=== PATIENT | female | born 1975 | race Caucasian/White ===

== ENCOUNTER 2016-06-28 17:05 | Emergency (ER) | payer OTHER ==
[~2016-06-28] VITALS: Ht 162.6 cm; Wt 59.0 kg
--- NOTE | 2016-06-28 18:45 | ED CARDIAC/CP/PALPITATIONS ---
History of Present Illness General Chief Complaint: Chest Pain Stated Complaint: CP WITH DIZZINESS Source: patient, old records Exam Limitations: no limitations Vital Signs & Intake/Output Vital Signs & Intake/Output Vital Signs Date Time Temp Pulse Resp B/P Pulse O2 O2 Flow FiO2 Ox Delivery Rate 06/28 2141 66 20 111/64 98 Room Air 06/28 1941 Room Air Room Air 06/28 1754 97.9 83 20 109/79 98 Room Air Room Air Allergies Coded Allergies: No Known Allergies (06/28/16) Reconcile Medications Alprazolam 1 MG TABLET 1 TAB PO TIDPRN ANXIETY (Reported) Diazepam (Valium) 2 MG TABLET 1 TAB PO BID PRN DIZZINESS Triage Note: PT TO ED WITH C/O "FEELING FOGGY, CAN'T TALK STRAIGHT, CHEST PAIN, NECK PAIN FOR A MONTH OR TWO". Triage Nurses Notes Reviewed? yes Onset: Gradual Duration: since january 2016 everyday constant pressure aching Timing: recent history Quality/Severity: moderate, aching, pressure Location: substernal Radiation: no radiation Activities at Onset: none Prior Chest Pain/Card Workup: no prior chest pain Nitro Today/Relief: no nitro taken today Aspirin Today: 81 mg x 1 Associated Symptoms: dyspnea headache, "feeling foggy" : No Patient currently breastfeeds: No HPI: 40-year-old female with history of anxiety on Xanax presents to emergency room complaining of severe moderate aching nonradiating substernal chest pain associated with shortness of breath. She states she's had these symptoms every day of her life since January 2016. She states the chest pain is worse with talking and is felt in a "fog" complaining of generalized headaches since. She is not taken anything for the symptoms are soccer since she does not have a primary care physician. She denies nausea vomiting abdominal pain. The patient does report intermittent shortness of breath however denies pain with inspiration no cough no hemoptysis no leg swelling recent immobility or recent travel. She is also complaining of room spinning dizziness worse with change in position and movement for which she has been on meclizine in the past without improvement. (ERIC VÁSQUEZ,DEEPTHI) Past History Travel History Traveled to [place] past 21 day No Medical History Any Pertinent Medical History? see below for history Neurological: NONE EENT: NONE Cardiovascular: NONE Respiratory: bronchitis Gastrointestinal: ULCER IN STOMACH, H-PYLORI Hepatic: NONE Renal: NONE Musculoskeletal: NONE Psychiatric: anxiety Endocrine: NONE Blood Disorders: NONE Cancer(s): cervical cancer MARITIME PILOT/Reproductive: NONE Surgical History Surgical History: none Psychosocial History What is your primary language Bulgarian Tobacco Use: Current Daily Use Daily Tobacco Use Amount/Type: => 5 Cigarettes daily ETOH Use: occasional use Illicit Drug Use: denies illicit drug use Family History Hx Contributory? No (DEEPTHI BERNAL) Review of Systems Review of Systems Constitutional: Reports: see HPI. All Other Systems: Reviewed and Negative Comments Review of systems: See HPI, All other systems negative. Constitutional, no chills no fever, no malaise no weight loss HEENT: No visual changes no sore throat no congestion, Cardiovascular: chest pain , no palpitation Skin, no jaundice no rashes, no change in skin Respiratory: dyspnea no cough no sputum no hemoptysis GI: No nausea no vomiting, no diarrhea, : No dysuria Muscle skeletal: No joint pain, no joint swelling, no back pain, no neck pain, Neurologic: No numbness no confusion, no headache Psych: No stress no anxiety Heme/endocrine: No bruising no bleeding Immunology: No lymphadenopathy (DEEPTHI BERNAL) Physical Exam Physical Exam General Appearance: well developed/nourished, alert Cardiovascular: regular rate/rhythm Comments: Well-developed well-nourished person in no acute distress HEENT: Normal EENT exam; PERRL, EOMI, HEAD is atraumatic. moist mucous membranes. No nystagmus Neck: Supple, no lymphadenopathy, normal range of motion Back: Nontender, no CVA tenderness. Full range of motion Cardiovascular: Regular rate and rhythms no murmurs rubs or gallops, normal JVP Respiratory: Chest nontender.There were no bony deformities, no asymmetry. No respiratory distress. Patient speaking in full complete sentences. Breath sounds clear to auscultation bilaterally: NO W/R/R Abdomen: Soft, nontender nondistended, no appreciable organomegaly. Normal bowel sounds. No rebound/guarding, Extremity: No edema, full range of motion of extremities, normal and equal pulses bilaterally, 5 out of 5 strength noted to bilateral upper and lower extremities Neuro: Alert oriented x3, motor sensory normal, cranial nerves II through XII grossly intact. There were no obvious focal neurologic abnormalities. Skin: No appreciable rash on exposed skin, skin is warm and dry. Psych: Mood and affect is normal, memory and judgment is normal. Core Measures ACS in differential dx? Yes Severe Sepsis Present: No Septic Shock Present: No (ERIC VÁSQUEZ,DEEPTHI) Progress Differential Diagnosis: AMI, atrial fibrillation, CHF/pulm edema, costochondritis, hypovolemia, musculoskeletal pain, myocarditis, pancreatitis, pericarditis, pneumonia, pneumothorax, pulmonary embolism Plan of Care: Orders Procedure Date/time Status Add-on Test (ER Only) 06/28 2057 Active LYME TITRE 06/28 1934 Active TROPONIN LEVEL 06/28 1904 Complete HUMAN BETA HCG SCREEN 06/28 1904 Complete COMPREHENSIVE METABOLIC PANEL 06/28 1904 Complete CBC WITHOUT DIFFERENTIAL 06/28 1904 Complete EKG 06/28 1705 Active Laboratory Tests 06/28/161934: Anion Gap 7, Estimated GFR > 60, BUN/Creatinine Ratio 27.1 H, Glucose 89, Calcium 9.4, Total Bilirubin 0.7, AST 19, ALT 36, Alkaline Phosphatase 52, Troponin I < 0.01, Total Protein 6.9, Albumin 4.3, Globulin 2.6, Albumin/ Globulin Ratio 1.7, Total Beta HCG NEGATIVE, CBC w Diff NO MAN DIFF REQ, RBC 4.29, MCV 94.4, MCH 31.5 H, RDW 12.6, MPV 7.7, Gran % 64.9, Lymphocytes % 26.3, Monocytes % 6.4, Eosinophils % 1.8, Basophils % 0.6, Absolute Granulocytes 4.8, Absolute Lymphocytes 2.0, Absolute Monocytes 0.5, Absolute Eosinophils 0.1, Absolute Basophils 0, PUBS MCHC 33.4, Lyme Disease Antibody Pending labs ordered, pt medicated with valium 5mg po which she reports relief of dizziness in past 06/28/2016 8:50:28 PM patient reports dizziness has improved- pt using her cellphone in no apparent distress she has been normal sinus on the monitor I discussed with her at length her chest x-ray CAT scan and lab results I discussed with her need and importance of close follow-up with primary care physician and cardiology both of which were provided to her discharge paperwork prescription for Valium was provided advised to return anytime sooner if her symptoms worsen at all of her questions she feels comfortable this plan I stressed the importance of not taking this medication with her Xanax. pt amb with steady gait here in dept, feels comfortable with plan (DEEPTHI BERNAL) Diagnostic Imaging: Viewed by Me: Radiology Read, CT Scan. Discussed w/RAD: Radiology Read, CT Scan. Radiology Impression: PATIENT: GWEN MELLO PRESENT AGE: 40 PATIENT ACCOUNT NO: [id number] : 75 LOCATION: ER ORDERING PHYSICIAN: DEEPTHI VÁSQUEZ SERVICE DATE: 06/28/16 EXAM TYPE: CAT - CT HEAD WO IV CONTRAST EXAMINATION: CT HEAD WITHOUT CONTRAST CLINICAL INFORMATION: Headache, difficulty finding words. Assess for intracranial hemorrhage. COMPARISON: None. TECHNIQUE: Contiguous axial imaging was performed from the skull base to vertex without intravenous administration of contrast. DLP: 600.71 mGy-cm. FINDINGS: There is no evidence of acute intracranial hemorrhage or territorial infarction. No abnormal mass effect or midline shift is seen. Gandhi to white matter differentiation is well preserved. No extra-axial fluid collections are identified. The ventricles are normal in size. There is no abnormal attenuation within the brain parenchyma. The osseous structures and soft tissues are normal. The mastoid air cells and visualized portions of the paranasal sinuses are well aerated. IMPRESSION: 1. There are no acute intracranial findings. DICTATED BY: ALYSSA VAZ MD DATE/TIME DICTATED:06/28/162027 WASHER ENGINEER:JULIEN DATE/TIME TRANSCRIBED:06/28/162027 CONFIDENTIAL, DO NOT COPY WITHOUT APPROPRIATE AUTHORIZATION. <Electronically signed in Other Vendor System> SIGNED BY: ALYSSA VAZ MD 06/28/162034, PATIENT: GWEN MELLO PRESENT AGE: 40 PATIENT ACCOUNT NO: [id number] : 75 LOCATION: ER ORDERING PHYSICIAN: DEEPTHI VÁSQUEZ SERVICE DATE: 06/28/16 EXAM TYPE: RAD - XRY-CHEST XRAY, PA AND LATERAL EXAMINATION: XR CHEST CLINICAL INFORMATION: Cardiomegaly. Chest pain. COMPARISON: Chest x-ray 09/19/2007 TECHNIQUE: 2 views of the chest were obtained. FINDINGS: No significant abnormality is noted involving the heart, lungs, mediastinum, bony thorax or soft tissues. IMPRESSION: Unremarkable examination. DICTATED BY: LEIGHANN BENITEZ MD DATE/TIME DICTATED:06/28/162042 WASHER ENGINEER:JULIEN DATE/TIME TRANSCRIBED:06/28/162042 CONFIDENTIAL, DO NOT COPY WITHOUT APPROPRIATE AUTHORIZATION. <Electronically signed in Other Vendor System> SIGNED BY: LEIGHANN BENITEZ MD 06/28/162046 Initial ED EKG: normal intervals, normal p-waves, normal QRS complex, normal sinus rhythm (80) Rhythm Strip: normal sinus rhythm (DEEPTHI BERNAL) Departure Departure Time of Disposition: 2050 Disposition: HOME OR SELF CARE Condition: Stable Clinical Impression Primary Impression: Chest pain Secondary Impressions: Dizziness Referrals: PATIENT HAS NO PRIMARY CARE DR (PCP/Family) Additional Instructions: Follow-up with DR Anna Perez, DO as well as Dr. ORR this week. Valium as directed do not take this with your Xanax Departure Forms: Customer Survey General Discharge Information Prescriptions: Current Visit Scripts Diazepam (Valium) 1 TAB PO BID PRN DIZZINESS #8 TAB (DEEPTHI BERNAL) PA/CENSUS ENUMERATOR Co-Sign Statement Statement: ED Attending supervision documentation- [] I saw and evaluated the patient. I have also reviewed all the pertinent lab results and diagnostic results. I agree with the findings and the plan of care as documented in the PA's/CENSUS ENUMERATOR's documentation. [X] I have reviewed the ED Record and agree with the PA's/CENSUS ENUMERATOR's documentation. [] Additions or exceptions (if any) to the PAs/CENSUS ENUMERATOR's note and plan are summarized below: [] (DELIA ORTIZ,JENELLE) Critical Care Note Critical Care Note Critical Care Time: non-applicable (DEEPTHI BERNAL)
[2016-06-28] MEDS ORDERED: ALPRAZOLAM1 M2 PO (19:41)
[2016-06-28 19:43] LABS: ABSOLUTE BASOPHIL COUNT 0 /CUMM (0.0-0.2); ABSOLUTE EOSINOPHIL COUNT 0.1 /CUMM (0.0-0.7); ABSOLUTE GRANULOCYTE CT 4.8 /CUMM (1.4-6.5); ABSOLUTE MONOCYTE COUNT 0.5 /CUMM (0.10-0.60); BASOPHIL % 0.6 % (0.0-2.0); EOSINOPHIL % 1.8 % (0-5); GRANULOCYTE % 64.9 % (42.2-75.2); HEMATOCRIT 40.5 % (37-47); MEAN CORPUSCULAR HGB 31.5 PG (27.0-31.0); MEAN CORPUSCULAR HGB CONC 33.4 G/DL (33.0-37.0); MEAN CORPUSCULAR VOLUME 94.4 FL (81.0-99.0); MEAN PLATELET VOLUME 7.7 FL (7.4-10.4); PLATELET COUNT 269 /CUMM (130-400); RBC DISTRIBUTION WIDTH 12.6 % (11.5-14.5); RED BLOOD CELL CT 4.29 /CUMM (4.20-5.40); WHITE BLOOD CELL COUNT 7.4 /CUMM (4.8-10.8)
--- NOTE | 2016-06-28 20:35 | CT SCAN REPORT ---
EXAMINATION: CT HEAD WITHOUT CONTRAST CLINICAL INFORMATION: Headache, difficulty finding words. Assess for intracranial hemorrhage. COMPARISON: None. TECHNIQUE: Contiguous axial imaging was performed from the skull base to vertex without intravenous administration of contrast. DLP: 600.71 mGy-cm. FINDINGS: There is no evidence of acute intracranial hemorrhage or territorial infarction. No abnormal mass effect or midline shift is seen. Gandhi to white matter differentiation is well preserved. No extra-axial fluid collections are identified. The ventricles are normal in size. There is no abnormal attenuation within the brain parenchyma. The osseous structures and soft tissues are normal. The mastoid air cells and visualized portions of the paranasal sinuses are well aerated. IMPRESSION: 1. There are no acute intracranial findings.
--- NOTE | 2016-06-28 20:47 | RADIOLOGY REPORT ---
EXAMINATION: XR CHEST CLINICAL INFORMATION: Cardiomegaly. Chest pain. COMPARISON: Chest x-ray 09/19/2007 TECHNIQUE: 2 views of the chest were obtained. FINDINGS: No significant abnormality is noted involving the heart, lungs, mediastinum, bony thorax or soft tissues. IMPRESSION: Unremarkable examination.
[2016-06-28] MEDS ORDERED: VALIUM2 M1 PO (20:52)
[2016-06-28 21:41] VITALS: BP 111/64
== END 2016-06-28 21:42 ==
LOC: ERH 17:05
PROVIDERS: Physician Assistant Medical
DX: R07.9 Chest pain, unspecified (principal); R42 Dizziness and giddiness
CPT/HCPCS: 86618; 93005; 93010; J3360

== ENCOUNTER 2016-08-04 17:20 | Emergency (ER) | payer OTHER ==
[~2016-08-04] VITALS: Ht 162.6 cm; Wt 59.0 kg
[~2016-08-04 17:20] MED LIST: ALPRAZOLAM1 M2 PO; VALIUM2 M1 PO
[2016-08-04 17:25] VITALS: BP 109/73
--- NOTE | 2016-08-04 17:51 | ED GENERAL ADULT ---
History of Present Illness General Chief Complaint: General Adult Stated Complaint: R SIDED RIB PAIN Source: patient, old records Exam Limitations: no limitations Vital Signs & Intake/Output Vital Signs & Intake/Output Vital Signs Date Time Temp Pulse Resp B/P Pulse O2 O2 Flow FiO2 Ox Delivery Rate 08/04 1827 99 08/04 1725 98.4 91 20 109/73 94 Room Air Allergies Coded Allergies: No Known Allergies (06/28/16) Reconcile Medications Alprazolam 1 MG TABLET 1 TAB PO TIDPRN ANXIETY (Reported) Cholecalciferol (Vitamin D3) (Vitamin D) (Unknown Strength) TABLET (Unknown Dose) PO DAILY SUPPLEMENT (Reported) Dextroamphetamine/Amphetamine (Dextroamp-Amphetamin 30 MG Tab) 30 MG TABLET 1 TAB PO PRN ADD (Reported) Meloxicam (Mobic) 15 MG TABLET 1 TAB PO DAILY PRN PAIN/INFLAMMATION Vitamin A Palmitate (Vitamin A) (Unknown Strength) CAPSULE (Unknown Dose) PO DAILY SUPPLEMENT (Reported) Vitamin B Complex (B Complete) 1 EACH TABLET 1 TAB PO DAILY SUPPLEMENT ( Reported) Triage Note: PT TO ED C/O RIGHT SIDED RIB PAIN SINCE SUNDAY. STATES WENT TO WALK IN YESTERDAY, HAD NORMAL CXR. TOLD TO COME TO ER FOR FURTHER EVAL TO R/O PE OR "GALLBLADDER". PT CAME TO ED YESTERDAY BUT DID NOT WANT TO WAIT TO BE SEEN. RIB PAIN IS WORSE WITH INSPIRATION. DENIES ANY INJURY. Triage Nurses Notes Reviewed? yes : No Patient currently breastfeeds: No HPI: Patient is a 40-year-old female presents complaining of right-sided chest pain since Sunday. Pain is a sharp pain worsens with deep breath and movement. Patient was seen at an urgent care clinic yesterday, had x-rays of her right ribs and a PA chest x-ray that was read as unremarkable. Patient reports the pain awoke her from sleep Sunday morning. Patient reports pain is currently severe. Patient denies lower extremity pain, lower extremity swelling, fevers, chills, abdominal pain, vomiting. (JEFRY VÁSQUEZ,RHEA) Past History Travel History Traveled to [place] past 21 day No Medical History Any Pertinent Medical History? see below for history Neurological: NONE EENT: NONE Cardiovascular: NONE Respiratory: bronchitis Gastrointestinal: ULCER IN STOMACH, H-PYLORI Hepatic: NONE Renal: NONE Musculoskeletal: NONE Psychiatric: anxiety Endocrine: NONE Blood Disorders: NONE Cancer(s): cervical cancer STAFFING ASSISTANT/Reproductive: NONE Surgical History Surgical History: none Psychosocial History What is your primary language Macedonian Tobacco Use: Current Daily Use Daily Tobacco Use Amount/Type: =< 4 Cigarettes daily ETOH Use: occasional use Illicit Drug Use: denies illicit drug use Family History Hx Contributory? No (RHEA BENSON) Review of Systems Review of Systems Constitutional: Denies: chills, fever. EENTM: Reports: no symptoms. Respiratory: Reports: short of breath. Denies: cough. Cardiovascular: Reports: see HPI. GI: Denies: abdominal pain, nausea, vomiting. Genitourinary: Reports: no symptoms. Musculoskeletal: Reports: back pain. Skin: Reports: no symptoms. Neurological/Psychological: Reports: no symptoms. Hematologic/Endocrine: Reports: no symptoms. Immunologic/Allergic: Reports: no symptoms. (RHEA BENSON) Physical Exam Physical Exam General Appearance: well developed/nourished, alert, awake Head: atraumatic, normal appearance Eyes: Bilateral: normal appearance, PERRL, EOMI. Ears, Nose, Throat: normal pharynx, normal ENT inspection, hearing grossly normal Neck: normal inspection, supple, full range of motion Respiratory: normal breath sounds, chest non-tender, no respiratory distress, lungs clear Cardiovascular: regular rate/rhythm Peripheral Pulses: 2+ dorsalis pedis (R), 2+ dorsalis pedis (L) Gastrointestinal: normal bowel sounds, soft, non-tender, negative Cardenas sign Back: normal inspection, normal range of motion Extremities: normal inspection, normal capillary refill, normal range of motion, no edema, no calf tenderness Neurologic/Psych: no motor/sensory deficits, awake, alert, oriented x 3, normal gait, normal mood/affect Skin: intact, normal color, warm/dry Lymphatic: no anterior cervical tc Core Measures ACS in differential dx? Yes ASA ordered for poss ACS? No-ACS ruled out CVA/TIA Diagnosis: No Severe Sepsis Present: No Septic Shock Present: No (RHEA BENSON) Progress Differential Diagnoses I considered the following diagnoses in my evaluation of the patient: pleurisy, ACS, pneumonia, pneumothorax, PE, pericarditis, myocarditis Plan of Care: Orders Procedure Date/time Status URINALYSIS 08/04 1806 Active TROPONIN LEVEL 08/04 1806 Complete HUMAN BETA HCG SCREEN 08/04 1806 Complete D-DIMER 08/04 1806 Complete COMPREHENSIVE METABOLIC PANEL 08/04 1806 Complete CBC WITHOUT DIFFERENTIAL 08/04 1806 Complete EKG 08/04 1806 Active Laboratory Tests 08/04/16 1822: Anion Gap 10, Estimated GFR > 60, BUN/Creatinine Ratio 21.4, Glucose 111 H, Calcium 9.9, Total Bilirubin 0.4, AST 18, ALT 29, Alkaline Phosphatase 49, Troponin I < 0.01, Total Protein 6.9, Albumin 4.2, Globulin 2.7, Albumin/ Globulin Ratio 1.6, Total Beta HCG NEGATIVE, D-Dimer < 200, CBC w Diff NO MAN DIFF REQ, RBC 4.26, MCV 94.1, MCH 31.6 H, RDW 12.8, MPV 8.0, Gran % 69.0, Lymphocytes % 21.4, Monocytes % 6.8, Eosinophils % 2.3, Basophils % 0.5, Absolute Granulocytes 5.3, Absolute Lymphocytes 1.7, Absolute Monocytes 0.5, Absolute Eosinophils 0.2, Absolute Basophils 0, PUBS MCHC 33.6 Patient had rib/chest x-ray yesterday at urgent care clinic. Radiology reading reviewed(no acute findings). A copy of the results placed in patient's chart. 1924: Results discussed with patient. No abdominal tenderness on exam. Symptoms greater than 24 hours with negative D-Dimer, troponin and no ischemic changes on EKG. Appears stable for discharge and outpatient follow up. (RHEA BENSON) Initial ED EKG: normal axis, normal intervals, normal QRS complex, normal sinus rhythm, no ST T wave changes Prior EKG: unchanged (RHEA BENSON) Departure Departure Time of Disposition: 1928 Disposition: HOME OR SELF CARE Condition: Stable Clinical Impression Primary Impression: Pleurisy Referrals: BALBIR SANTIAGO MD PATIENT HAS NO PRIMARY CARE DR (PCP/Family) VIRIDIANA LANDERS MD Additional Instructions: Follow up with Dr. Santiago(primary care doctor) and/or Dr. Landers(crop pest control specialist) for further evaluation. Return to the ER if fevers or worsening of symptoms. Departure Forms: Customer Survey General Discharge Information Prescriptions: Current Visit Scripts Meloxicam (Mobic) 1 TAB PO DAILY PRN PAIN/INFLAMMATION #7 TAB (RHEA BENSON) PA/DRUM MAKER Co-Sign Statement Statement: ED Attending supervision documentation- [] I saw and evaluated the patient. I have also reviewed all the pertinent lab results and diagnostic results. I agree with the findings and the plan of care as documented in the PA's/DRUM MAKER's documentation. [X] I have reviewed the ED Record and agree with the PA's/DRUM MAKER's documentation. [] Additions or exceptions (if any) to the PAs/DRUM MAKER's note and plan are summarized below: [] (BECKY EUCEDA DO) Critical Care Note Critical Care Note Critical Care Time: non-applicable (RHEA BENSON)
[2016-08-04 18:32] LABS: ABSOLUTE BASOPHIL COUNT 0 /CUMM (0.0-0.2); ABSOLUTE EOSINOPHIL COUNT 0.2 /CUMM (0.0-0.7); ABSOLUTE GRANULOCYTE CT 5.3 /CUMM (1.4-6.5); ABSOLUTE LYMPH COUNT 1.7 /CUMM (1.2-3.4); ABSOLUTE MONOCYTE COUNT 0.5 /CUMM (0.10-0.60); BASOPHIL % 0.5 % (0.0-2.0); EOSINOPHIL % 2.3 % (0-5); HEMATOCRIT 40.1 % (37-47); MEAN CORPUSCULAR HGB 31.6 PG (27.0-31.0); MEAN CORPUSCULAR HGB CONC 33.6 G/DL (33.0-37.0); MEAN CORPUSCULAR VOLUME 94.1 FL (81.0-99.0); PLATELET COUNT 263 /CUMM (130-400); RBC DISTRIBUTION WIDTH 12.8 % (11.5-14.5); RED BLOOD CELL CT 4.26 /CUMM (4.20-5.40); WHITE BLOOD CELL COUNT 7.7 /CUMM (4.8-10.8)
[2016-08-04] MEDS ORDERED: DEXTROAMP-AMPHE30 MG PO (19:16)
[2016-08-04] MEDS ORDERED: VITAMIN A10000 UNI1 PO (19:17)
[2016-08-04] MEDS ORDERED: B COMPLETE1 EACH PO (19:17)
[2016-08-04] MEDS ORDERED: VITAMIN D2000 UNI1 PO (19:18)
[2016-08-04] MEDS ORDERED: MOBIC15 M1 PO (19:21)
== END 2016-08-04 19:38 ==
LOC: ERH 17:20
PROVIDERS: Physician Assistant
DX: R09.1 Pleurisy (principal); R07.9 Chest pain, unspecified
CPT/HCPCS: 93005; 93010